=== PATIENT | male | born 1985 | race Caucasian/White ===

== ENCOUNTER 2018-12-26 14:34 | Emergency (ER) | payer OTHER, SELFPAY ==
--- NOTE | 2018-12-26 15:33 | RAD ---
RIGHT WRIST RADIOGRAPHS 3 VIEWS: DATE: 12/26/2018. PROVIDED CLINICAL HISTORY: Pain status post injury. FINDINGS: Intraarticular fracture involving the base of the 5th metacarpal is noted, please see concurrently di ctated right hand radiographs. There is no evidence for a fracture or other acute osseous abnormalit y involving the right breast. If there is persistent clinical concern, conservative management and f ollowup imaging are advised. IMPRESSION: As above. POS: [facility]
--- NOTE | 2018-12-26 15:33 | RAD ---
RIGHT HAND RADIOGRAPHS THREE VIEWS: 12/26/2018 PROVIDED CLINICAL HISTORY: Pain, status post injury. FINDINGS: There is a comminuted intraarticular fracture involving the base of the 5th metacarpal. No definite additional fracture is evident. IMPRESSION: Comminuted intraarticular fracture involving the base of the 5th metacarpal. POS: [facility]
[2018-12-26] MEDS ORDERED: Ibuprofen 200 MG TAB ONE ×2 (17:16→17:19)
== END 2018-12-26 17:44 | disposition home or self-care (01) ==
LOC: ERS 14:34
DX: S62.316A Displaced fracture of base of fifth metacarpal bone, right hand, initial encounter for closed fracture (principal); F17.210 Nicotine dependence, cigarettes, uncomplicated; W22.8XXA Striking against or struck by other objects, initial encounter
CPT/HCPCS: 29125